=== PATIENT | male | born 1955 | race Caucasian/White ===

== ENCOUNTER 2021-11-02 20:03 | Emergency (ER) | payer MEDICARE, OTHER ==
--- NOTE | 2021-11-02 20:09 | ERPHSYRPT ---
- History of Present Illness Time Seen by Provider: 11/02/21 20:09 Source: patient, family Exam Limitations: no limitations Physician History: This is a 66-year-old white male who earlier today got his right shoe caught on a piece of concrete rolled his ankle and is complaining of right foot and ankle pain and swelling. Method of Injury: fell, twisted Occurred: this afternoon Quality: aching, throbbing Severity of Pain-Max: moderate Severity of Pain-Current: moderate Lower Extremities Pain: foot: right, ankle: right Modifying Factors: Improves With: movement Associated Symptoms: unable to bear weight Allergies/Adverse Reactions: Serotonin 5HT-3 Antagonists Adverse Reaction (Intermediate, Verified 11/02/21 20:22) Travel Risk - International Travel Have you traveled outside of the country in past 3 weeks: No - Coronavirus Screening Are you exhibiting any of the following symptoms?: No Close contact with a COVID-19 positive Pt in past 14-21 Days: No - Review of Systems Constitutional: No Symptoms Eyes: No Symptoms Ears, Nose, & Throat: No Symptoms Respiratory: No Symptoms Cardiac: No Symptoms Abdominal/Gastrointestinal: No Symptoms Genitourinary Symptoms: No Symptoms Musculoskeletal: Injury Skin: No Symptoms (Right foot and ankle) Neurological: No Symptoms Psychological: No Symptoms Endocrine: No Symptoms Hematologic/Lymphatic: No Symptoms Immunological/Allergic: No Symptoms All Other Systems: Reviewed and Negative - Past Medical History Pertinent Past Medical History: Yes - Past Surgical History Past Surgical History: Yes - Nursing Vital Signs Nursing Vital Signs: Initial Vital Signs Temperature 98.4 F 11/02/21 20:04 Pulse Rate 81 11/02/21 20:04 Respiratory Rate 18 11/02/21 20:04 Blood Pressure 158/89 11/02/21 20:04 O2 Sat by Pulse Oximetry 97 11/02/21 20:04 Pain Scale Pain Intensity 8 - Physical Exam General Appearance: no apparent distress, alert, anxiety Eyes, Ears, Nose, Throat Exam: normal ENT inspection, moist mucous membranes Neck Exam: normal inspection, non-tender, supple, full range of motion Cardiovascular/Respiratory Exam: chest non-tender, no respiratory distress Gastrointestinal/Abdominal Exam: non-tender Back Exam: normal inspection, normal range of motion, No CVA tenderness, No vertebral tenderness Hips Exam: bilateral: non-tender, normal inspection, normal range of motion, no evidence of injury Legs Exam: bilateral leg: non-tender, normal inspection, normal range of motion, no evidence of injury Knees Exam: bilateral knee: non-tender, normal inspection, normal range of motion, no evidence of injury Ankle Exam: right ankle: bone tenderness, soft tissue tenderness, swelling, left ankle: non-tender, normal inspection, normal range of motion Foot Exam: right foot: bone tenderness, soft tissue tenderness, swelling, left foot: non-tender, normal inspection, normal range of motion, no evidence of injury Neuro/Tendon Exam: normal sensation, normal motor functions, normal tendon functions, responds to pain, no evidence tendon injury Mental Status Exam: alert, oriented x 3, cooperative Skin Exam: normal color, warm, dry SpO2 Interpretation: normal O2 Delivery: Room Air - Course Nursing assessment & vital signs reviewed: Yes Ordered Tests: Active Orders 24 hr Category Date Time Status ANKLE (3 VIEWS) Stat Exams 11/02/21 21:34 Taken FOOT (MINIMUM 3 VIEWS) Stat Exams 11/02/21 21:34 Taken - Progress Progress: improved, pain not gone completely, re-examined Progress Note: 11/02/21 21:56 X-ray of right ankle shows no acute fracture or dislocation. X-ray of right foot shows a nondisplaced fracture of the proximal fifth metatarsal. 11/02/21 21:57 Medical decision making: This patient has the nondisplaced fracture of the proximal fifth metatarsal. 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 However, the wanted to see if they could see someone sooner. I did offer them the orthopedic walk-in clinic here at [facility]. They have opted to follow-up there tomorrow morning. Counseled pt/family regarding: diagnosis, need for follow-up, rad results - Departure Departure Disposition: Home Clinical Impression: Fracture of metatarsal of left foot, closed Condition: Stable Critical Care Time: No Additional Instructions: Nonweightbearing. Follow-up tomorrow at the [facility] orthopedic clinic for further evaluation and management. Take your medications as prescribed. Ice bath to right foot 3 times a day. Add ibuprofen 600 mg 3 times a day with food to your pain control regimen Prescriptions: Oxycodone HCl/Acetaminophen [Percocet 5-325 mg Tablet] 1 each PO Q8H PRN PRN #6 tablet MDD 3 PRN Reason: Moderate To Severe Pain
[2021-11-02 21:17] VITALS: O2SAT 98
[2021-11-02] MEDS ORDERED: PERCOCET TABLET 5/325MG PO STA ×2 (22:01→22:02)
[2021-11-02] MEDS ORDERED: MOTRIN 600 MG PO ONE (22:01)
[2021-11-02] MEDS ORDERED: PERCOCET TABLET 5/325MG ONE (22:12)
[2021-11-02] MEDS ORDERED: MOTRIN 600 MG ONE (22:13)
[2021-11-02 22:16] VITALS: BP 138/80; PULSE 63
--- NOTE | 2021-11-03 09:04 | XRAY ---
Indication: Pain following fall. Comparison: None 3 nonweightbearing views right foot demonstrates mild osteopenia, nondisplaced fracture base 5th metatarsal, moderate 1st MTP degenerative changes, tiny heel spurs, and mild anterior soft tissue swelling. No other bony, articular, or soft tissue abnormalities.
--- NOTE | 2021-11-03 09:04 | XRAY ---
Indication: Pain following fall. Comparison: None 3 view right ankle demonstrates mild osteopenia, nondisplaced fracture base 5th metatarsal, tiny heel spurs, and mild lateral soft tissue swelling. No other bony, articular, or soft tissue abnormalities.
== END 2021-11-02 22:35 | disposition home or self-care (01) ==
LOC: ED 20:03
DX: S92.354A Nondisplaced fracture of fifth metatarsal bone, right foot, initial encounter for closed fracture (principal); W01.0XXA Fall on same level from slipping, tripping and stumbling without subsequent striking against object, initial encounter; M25.571 Pain in right ankle and joints of right foot; Z79.891 Long term (current) use of opiate analgesic
CPT/HCPCS: 73610; 73630; 99284; A9270-GY